=== PATIENT | female | born 1955 | race Caucasian/White ===

== ENCOUNTER 2016-10-24 20:39 | Inpatient (IN) | payer BC ==
[~2016-10-24] VITALS: Ht 157.5 cm; Wt 60.5 kg
--- NOTE | ~2016-10-24 | ECHO ---
Transthoracic Echocardiography Report (TTE) Demographics Patient Name MARCUS CHOW Date of Study 10/25/2016 Patient Number [id number] Visit Number [id number] Date of 1955 Room Number G6209 Gender Female Number Age 61 year(s) Referring Cain Leos Boot Liner Maker Sindhu Ochoa RVT, Physician RDCS Physician Interpreting Cheo Haley Electronic Heat Seal Operator Physician A Supervising Ordering Keyanna Tilley MD, MD/MLP Physician Nurse Stress Financial Analysis Consultant Conclusions Contractility Score Summary Normal Left Ventricular contractility was noted. Summary The estimated left ventricular ejection fraction is 65-70%. Mild concentric left ventricular hypertrophy. Diastolic assessment reveals Grade II pseudonormal diastolic function. . The left ventricle is normal in size . Trivial posterior pericardial effusion. Procedure Type of Study TTE procedure:2D Echocardiogram. Procedure Date Date: 10/25/2016 Start: 02:19 PM Study Location: Inpatient Portable Technical Quality: Adequate visualization Indications:Elevated Troponin. Appropriate Use Criteria: 8 Patient Status: Routine Rhythm: NSR HR: 78 bpm BP: 105/53 mmHg M-Mode/2D Measurements LV Diastolic Dimension: 4.1 cm LV Systolic Dimension: 2.09 cm LV Septum Diastolic: 1.21 cm LV PW Diastolic: 1.09 cm AO Root Dimension: 2 cm Cardiac Output: 3.89 l/min AV Cusp Separation: 1.8 cm RV Diastolic Dimension: 2.79 cm LA volume: 51 ml LVOT: 1.7 cm RV Base: 3.31 cm LVOT VTI: 22 cm RV Mid: 2.45 cm LV Stroke volume: 49.91 ml TAPSE: 2.64 cm TDI-S': 12.5 cm/s Doppler Measurements AV Peak Velocity: 1.27 m/s MV Peak E-Wave: 0.88 m/s AV Peak Gradient: 6.45 mmHg MV Peak A-Wave: 0.72 m/s AV Mean Gradient: 4 mmHg MV E/A Ratio: 1.21 LVOT Peak Velocity: 1.04 m/s MV P1/2t: 52 msec TR Gradient:19.89 mmHg PV Peak Velocity: 1.01 m/s Estimated RAP:5 mmHg PV Peak Gradient: 4.08 mmHg Estimated RVSP: 25 mmHg Estimated PASP: 24.89 mmHg E' Septal Velocity: 0.06 m/s A' Septal Velocity: 0.11 m/s E' Lateral Velocity: 0.08 m/s A' Lateral Velocity: 0.11 m/s Findings Left Ventricle Mild concentric left ventricular hypertrophy. Diastolic assessment reveals Grade II pseudonormal diastolic function. . The left ventricle is normal in size . Right Ventricle Normal right ventricle structure and function. Left Atrium The left atrium is mildly dilated. There is no evidence of patent foramen ovale or atrial septal defect by color Doppler. Right Atrium Normal right atrial size. IVC measures 2.71 cm with inspiratory collapse. Mitral Valve Normal mitral valve structure and function. Trivial mitral regurgitation by color Doppler. Aortic Valve Normal aortic valve structure and function. Tricuspid Valve Normal appearing tricuspid valve. Trivial tricuspid regurgitation by color Doppler. Pulmonic Valve Normal pulmonic valve structure and function. Trivial pulmonic valve regurgitation. Pericardial Effusion Trivial posterior pericardial effusion. Miscellaneous Visualized portions of the aortic root and ascending aorta appear normal in size. IVC is moderately dilated. Pleural Effusion No evidence of pleural effusion. Contractility Score LV regional wall motion:(0-Non visualized 1-Normal 2-Hypokinesis 3-Akinesis 4-Dyskinesis 5-Aneurysm) Signature dtt: Ilene Grider dtd: 10/25/16 [id number] Physician Self Edit
--- NOTE | ~2016-10-24 | HP ---
PATIENT'S NAME: MARCUS CHOW [facility] AGE: 61 Y [address] ROOM: [address] [address] LOCATION: [facility] ADMIT DATE: 10/25/2016 History & Physical DISCHARGE DATE: FAMILY PHYSICIAN: PHYSICIAN, UNKNOWN ATTENDING PHYSICIAN: RIRI ESTEVES DATE OF SERVICE: CHIEF COMPLAINT: Epigastric pain as well as a decreased oral intake and decreased urine output as well as nausea, vomiting, and generalized weakness. HISTORY OF PRESENT ILLNESS: This is a 61-year-old female, who says that for the last few days she has been having decreased oral appetite and also has noticed decrease in urine output as well as feeling nauseous and vomited a few times in last few days of bilious content. Also has been complaining of epigastric pain without radiation on palpation. Because of the epigastric pain, she has poor appetite and feeling nauseous. She also has generalized weakness from decreased oral appetite. Her last bowel movement was yesterday, it was normal. She denies constipation in the past. Because of all these problems, patient went to [facility] ER for evaluation. Over there, the patient was found to have YANI with a creatinine at 3.6, GFR of 13, and BUN of 46. Also AST at 45, ALT at 55, alkaline phosphatase at 146, and pyuria on urinalysis. Also has leukocytosis at 15.6. Because of these findings, patient was sent over here for further care. She does complain of some on and off exertional dyspnea after her multiple years of tobacco use. The patient denies any chest pain or cough or fever or chills or any other complaints. REVIEW OF SYSTEMS: As mentioned in history of present illness. All other systems were reviewed and they were negative except those mentioned in the history of present illness. PAST MEDICAL HISTORY: 1. Multiple sclerosis, currently not in flare. 2. Hypertension. 3. Depression. 4. Chronic pain syndrome, dependent on narcotics. 5. History of shingles, dependent on narcotics. 6. Active alcohol drinker. 7. Active cigarette user. 8. Last time she drank alcohol was a few days ago that she could not remember. PATIENT'S NAME: MARCUS CHOW [facility] AGE: 61 Y [address] ROOM: [address] [address] LOCATION: [facility] ADMIT DATE: 10/25/2016 History & Physical DISCHARGE DATE: FAMILY PHYSICIAN: PHYSICIAN, UNKNOWN ATTENDING PHYSICIAN: RIRI ESTEVES ALLERGIES: CODEINE, CAUSES ANAPHYLAXIS AND KEFLEX ALSO CAUSES ANAPHYLAXIS AND ATIVAN, WHICH SHE COULD NOT REMEMBER THE REACTION. SOCIAL HISTORY: The patient is an active cigarette smoker about 10 cigarettes per day since she was 13 years old. She is also alcohol drinker about 3 days per week, last time she drank was a few days ago that she could not remember, and when she drinks she drinks about 3 ounces of hard liquor. She denies any alcohol withdrawal seizure in the past. She has been drinking that about 25 years on and off about 3 days per week. She denies any illegal drug use. PAST SURGICAL HISTORY: 1. Right wrist surgery in the past. 2. Appendectomy. FAMILY HISTORY: Father from old age from a cause that she could not remember. Mother had leukemia and from the complication from leukemia. PHYSICAL EXAMINATION: VITAL SIGNS: Temperature 97.9, heart rate 78, respirations 16, blood pressure 85/52, saturation 92% on 1 L nasal cannula. GENERAL APPEARANCE: Alert and oriented x3, in no acute distress. HEENT: Pupils equally round and reactive to light. Extraocular muscles intact. Anicteric sclerae. Nasal turbinates are normal bilaterally. Dry oral mucosa. NECK: No JVD. CARDIOVASCULAR: Regular rate and rhythm. Normal S1, S2. No murmur. No rubs. No gallops. RESPIRATORY: Clear to auscultation. No rales. No rhonchi. No crackles. No wheezing. ABDOMEN: Soft, mildly tender to palpation in the epigastric area, but no rebound tenderness. and also no abdominal rigidity. Bowel sounds present. No mass. EXTREMITIES: No edema in upper or lower extremities. NEUROLOGICAL: Grossly nonfocal. SKIN: No ulcer, no rash, no cyanosis. LABORATORY DATA: All the labs in our facility are pending. For the last from the outside facility at our admission in the history of History of present illness. PATIENT'S NAME: MARCUS CHOW [facility] AGE: 61 Y [address] ROOM: [address] [address] LOCATION: [facility] ADMIT DATE: 10/25/2016 History & Physical DISCHARGE DATE: FAMILY PHYSICIAN: PHYSICIAN, UNKNOWN ATTENDING PHYSICIAN: RIRI ESTEVES IMAGING STUDIES: The patient had a CT abdomen and pelvis without contrast performed from the outside facility in [facility]. On admission, showed mild jejunitis and duodenitis and also showed a right lateral infrarenal abdominal aortic saccular aneurysm measuring 3.4 cm likely with right lateral intraluminal thrombus. A fatty infiltration of the liver. The patient also had a KUB performed at outside facility, which the report showed focal segmental colonic ileus in the distal transverse colon. Mild nonspecific bowel gas pattern. ASSESSMENT AND PLAN: 1. Regarding her acute kidney injury: Most likely from dehydration, from decreased oral intake, from prerenal from hypovolemia. We will give her IV fluids bolus for hydration and check blood pressure and then once the blood pressure is stable we will continue with maintenance. We will also put a Metcalf to monitor urine output and also strict in's and out's. We will check urine electrolytes. Further plan will depend on clinical course. She already had CT abd/pelv done from [facility] (See imaging study section above for report). 2. Regarding her severe sepsis from UTI (Sepsis time recorded at 1:30AM of 10/25/16): The patient has pyuria; however, she denies any dysuria or urinary frequency or urgency. However, she does have leukocytosis and also has hypotension, could be from pyuria and/or from acute kidney injury from dehydration. I am going to treat her with IV meropenem for coverage given the patient is hypotensive and also has pyuria, treating for urinary tract infection. Get urine culture. Further plan will depend on clinical course. Sepsis order set already completed and is in chart. 3. 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 Trend liver function testing again tomorrow. The patient does not require steroids at the moment. 4. Regarding her active tobacco use: A nicotine patch 21 g transdermal daily. 5. Regarding her right lateral infrarenal abdominal aortic aneurysm 3.4 cm likely with right lateral intraluminal thrombus on CT scan abdomen and pelvis without contrast on admission from [place]: We will consult Vascular Surgery in the morning. For the aneurysm, does not require surgery because it is less than 5.5 cm; however, I am consulting Vascular Surgery for the likely right lateral intraluminal thrombus. The patient denies any history of bleeding. I am going to cover with IV Protonix 40 mg b.i.d. due to her duodenitis and started her on the IV heparin drip for the right lateral intraluminal thrombus. I already explained to the patient about the benefits and risks of using IV heparin drip, which the most common complication would be bleeding and the patient agreed to proceed with IV heparin drip. I will keep her n.p.o. until seen by Vascular Surgery to determine if vascular intervention would be necessary. Otherwise, she could PATIENT'S NAME: MARCUS CHOW [facility] AGE: 61 Y [address] ROOM: [id number] [place], [place] [address] LOCATION: [facility] ADMIT DATE: 10/25/2016 History & Physical DISCHARGE DATE: FAMILY PHYSICIAN: PHYSICIAN, UNKNOWN ATTENDING PHYSICIAN: RIRI ESTEVES A eat diet if surgery was not necessary. Further plan will depend on clinical course. 6. Regarding her duodenitis and jejunitis: Start iv protonix 40mg bid in setting of useing iv heparin drip for the right renal intraluminal thrombus. Will check EKG and one set cardiac enzymes to rule out cardiac origin. 7. Regarding her ileus based on the KUB: She had a bowel movement just yesterday; however, due to the ileus pattern seen on the KUB, I am going to give her Colace standing and MiraLAX prn for constipation. 8. Regarding her hypertension: Home medications have to be reconciled before they can be addressed. I will hold all blood pressure medications in the phase of hydration and hypotension and yani. 9. Regarding her chronic pain syndrome dependent on narcotics: Home medications have to be reconciled before can be addressed. For now, I will hold the narcotics due to hypotension at the moment. I will give her IV fentanyl p.r.n. and IV morphine p.r.n. with holding parameters for pain control and prevention of narcotic withdrawal. Avoid NSAID/metformin/ACEI/ARBS at all costs. 10. Regarding her intermittent exertional dyspnea: Will check CXR and proBN to evaluate for copd lung findings and/or pleural effusion from alcohol induced cardiomyopathy. 11. She is a full code. 12. DVT prophylaxis: She will be on heparin drip. Time spent in care on the day of admission 70 minutes for 30 minutes was spent on chart review and interview. The remainder of the time was spent on physical examination and also on counseling including going over the plan of care and addressing all the questions and concerns that the patient had to her satisfaction and going over plan of care with nurse. Further plan will depend on clinical course. YURY TRUJILLO MD CC/janey /[id number] D: [id number] T: [id number] HISTORY & PHYSICAL
--- NOTE | ~2016-10-24 | DS ---
PATIENT'S NAME: MARCUS CUEVAS [facility] AGE: 61 Y [address] ROOM: [address] [address] LOCATION: [facility]U ADMIT DATE: 10/25/2016 Discharge Summary DISCHARGE DATE: 10/28/2016 FAMILY PHYSICIAN: Physician, Unknown ATTENDING PHYSICIAN: Sumeet Barlow PRINCIPAL DISCHARGE DIAGNOSES: 1. Acute renal failure with creatinine at the [facility] 3.6, creatinine now 0.5. 2. Severe sepsis. She qualified for this by her acute renal failure and hypotension and leukocytosis of 15 at the [facility]. SECONDARY DIAGNOSES: 1. Urinary tract infection with Escherichia coli susceptible to imipenem, Bactrim, nitrofurantoin with repeat urinalysis this morning being negative. 2. Elevated lipase, first checked on 07/27/2106 at 4:52 today at 496. 3. Three-day history of nausea and vomiting prior to admission. 4. Protein calorie malnutrition with pre-albumin of 13. 5. Hypophosphatemia at the lowest, it was 1.2 on 10/27/2016. It is currently 2.1. 6. Hypomagnesemia, mild. 7. Elevated proBNP at 3714 with grade 2 pseudonormal diastolic dysfunction. 8. Tobaccoism status post cessation counseling. 9. Abdominal aortic aneurysm with suspected thrombus. 10. Thrombocytopenia. 11. Macrocytosis with normal B12 level. 12. Renal failure. 13. Mild elevation of liver enzymes with AST at 45 and ALT of 55 at [facility]. 14. Hypertension, poorly controlled. CONSULTATIONS: Sb Diaz MD of Vascular Surgery. PROCEDURES: Echocardiogram. FINDINGS: Brief summary of findings showed 65-70% EF with normal left ventricular wall motion, left ventricular hypertrophy, mild and grade 2 pseudonormal diastolic dysfunction. BRIEF HISTORY: Ms. Cuevas is a 61-year-old female who reports epigastric pain with decreased oral intake, decreased urine output with nausea, vomiting, generalized weakness for 3 days prior to admission. She was seen at [facility] and noted to have elevated creatinine and was transferred here. Her initial white count was 15. She had an abnormal PATIENT'S NAME: MARCUS CUEVAS [facility] AGE: 61 Y [address] ROOM: [id number] [place], [place] [address] LOCATION: [facility]PCU ADMIT DATE: 10/25/2016 Discharge Summary DISCHARGE DATE: 10/28/2016 FAMILY PHYSICIAN: Physician, Unknown ATTENDING PHYSICIAN: Sumeet Barlow A urinalysis and found to have the infection as above. She has been treated with meropenem since early a.m. on 10/25/2016. She was initially treated in the ICU, but did well and was transferred to PCU 2 days ago. She is now tolerating a diet, ambulating, working well with physical therapy in the hallway and is ready for discharge. While her liver enzymes were slightly elevated at the time of presentation, they were repeated when she was admitted here. Her AST was 27 and ALT was 34. She does have slightly low protein at 5.6 and 2.5 from that specimen. Currently, her albumin is 3.1. She also developed hypophosphatemia despite oral intake, dropped down to 1.2. She was replaced with IV phosphate yesterday, came up to 1.9 and is down to 0.1. She will be given a dose of oral phosphate before she leaves and recommended to have lean protein with every meal and protein with every snacks. She was noted to have a low pre- albumin as well which is 13. She has macrocytosis with MCV of 104.2 yesterday. Her B12 is normal. She has been receiving folic acid and thiamine here which will be continued as an outpatient. Her MCV actually improved some this morning and is 99.5 today. However, she is thrombocytopenic at 121, this is stable from yesterday and on admission was 157. I have explained to the patient that she gets blood changes with alcohol intake. We have advised to decrease her alcohol intake to no more than 1 to 2 drinks per day. She has been drinking 3-4 drinks per session 2-3 times a week. She has also smoked most of her life. She is currently smoking half a pack a day, has been trying to cut down. She was seen by Dr. Diaz for the AAA, which was found on imaging and she was initially evaluated at [facility]. Aneurysm measures 3.4 cm and the report states with right lateral intraluminal thrombus "likely." I have discussed this with Dr. Diaz. He thinks that she does not need anticoagulation therapy at this time, but should take an aspirin daily of 81 mg. I have counseled her yesterday and today to stop cigarettes and we started her on NicoDerm patch of 14 mg. She has a diagnosis of multiple sclerosis and has chronic generalized aching muscular pain for which she has been on multiple narcotics. We have advised her to cut these down. She was on a fentanyl patches 75 mcg. We have weaned that down to 25 mcg. She gradually weaned off all of these. She does see a neurologist, Michael Valentino of [place] and she sees him in an office in [place]. She has a followup appointment already scheduled with him in the next couple of weeks. The patient has known hypertension which tends to be erotic. She had elevated PATIENT'S NAME: MARCUS CUEVAS [facility] AGE: 61 Y [address] ROOM: [id number] [place] [id number] LOCATION: [facility]PCU ADMIT DATE: 10/25/2016 Discharge Summary DISCHARGE DATE: 10/28/2016 FAMILY PHYSICIAN: Physician, Unknown ATTENDING PHYSICIAN: Sumeet Barlow hypertension, needed IV medications and amlodipine was added at 10 mg a day. I am going to recommend that she take a lower dose at home. We also increased her lisinopril while she was here. Her blood pressure is down this morning, but I recommend that she continue on her same home dose. This can be adjusted when she sees her PCP later this week. She is being given a script for CBC with diff, complete metabolic panel, phosphorus magnesium and 25-hydroxy vitamin D. Labs to be drawn prior to or at the visit with Dr. Stuart this week. INSTRUCTIONS AT DISCHARGE: Low fat, heart healthy diet with the lean protein at each meal and protein snack once to twice a day. She should force fluids, drink cranberry juice. ACTIVITY: Walk 30 minutes every day. FOLLOWUP: 1. Dr. Diaz of Vascular Surgery here in 6 months with imaging. 2. I have recommended she see Dr. Andrés Stuart within a week of discharge. His phone number is [phone] at the [facility]. 3. Dr. Michael Valentino. MEDICATION LIST: 1. Amlodipine 5 mg p.o. daily. 2. Aspirin 81 mg p.o. daily with food. 3. Vitamin D 400 units p.o. daily. 4. Karina[place] p.r.n. 5. Duragesic patch 25 mcg transdermal every 72 hours. 6. Folic acid 1 mg p.o. daily. 7. Gabapentin 600 mg p.o. q.i.d. 8. Lisinopril 10 mg at bedtime. 9. Magnesium oxide 400 mg p.o. b.i.d. 10. Multiple vitamin 1 p.o. daily. 11. NicoDerm patch 14 mg transdermal change daily and wean down to 7 mg a day after a week or when able to. 12. She was on oxycodone 5/325 one daily as needed and written that she may take up to 3 a day. She is advised to wean this. She is advised to stop the oxycodone 15 mg daily. 13. OxyContin 30 twice a day should be weaned as tolerated as well. 14. Thiamine 100 mg p.o. daily. 15. Effexor 75 mg p.o. daily. 16. Vitamin C 500 mg p.o. daily. 17. Plegridy Pen 125 mcg subcu every 14 days. She is to continue this. 18. I will supply her with a script for one box of the fentanyl patch, otherwise she will have to get that from her pain management doctor since it is decreased dose and she will be able to use the other patches. PATIENT'S NAME: MARCUS CUEVAS [facility] AGE: 61 Y [address] ROOM: [place] [address] [facility] ADMIT DATE: 10/25/2016 Discharge Summary DISCHARGE DATE: 10/28/2016 FAMILY PHYSICIAN: Physician, Unknown ATTENDING PHYSICIAN: Sumeet Barlow A Greater than 60 minutes has actually been spent on counseling the patient, reviewing the data and making recommendations for followup. TOMASZ BIRMINGHAM MD LM/janey /[id number] CC: SbMD Andrés Moctezuma MD Terry M Himes, MD d: 10/29/16 0048 t: 10/29/16 1246, DISCHARGE SUMMARY
[2016-10-25 02:13] LABS: BASOPHIL % 0.2 %; HEMATOCRIT 50.2 % (33.0-46.0); HEMOGLOBIN 17.5 g/dL (10.0-15.0); IMMATURE GRANULOCYTE % 0.3 %; LYMPHOCYTE % 21.7 %; MCH 35.3 pg (27.0-34.0); MCHC 34.9 gm/dL (32.0-36.5); MCV 101.2 fl (83.0-98.0); MONOCYTE # 0.8 K/uL (0.0-1.0); MONOCYTE % 8.9 %; MPV 11.3 fl (9.4-12.4); NEUTROPHIL # (ANC) 6.5 K/uL (1.8-7.8); NEUTROPHIL % 68.9 %; NRBC % 0 /100WBC (0-0.00); PLATELET COUNT 157 K/uL (150-450); RBC 4.96 M/uL (3.50-5.50); RDW-CV 14.9 % (11.9-14.6); WBC 9.4 K/uL (4.0-11.0)
[2016-10-25 02:22] LABS: INR - (THERAPEUTIC) 1.05 (0.92-1.07); PTT 27 SECONDS (25-32)
[2016-10-25 02:46] LABS: ALBUMIN 2.9 gm/dL (3.5-5.0); ALK PHOS 129 IU/L (33-138); ALT 42 IU/L (12-78); ANION GAP 16.7 (10.0-19.0); AST 32 IU/L (10-40); BLOOD UREA NITROGEN 54 mg/dL (6-24); CALCIUM 8.1 mg/dL (8.5-10.5); CHLORIDE 101 mMol/L (96-110); CO2 23 mMol/L (22-32); CREATININE 3.1 mg/dL (0.5-1.1); SODIUM 137 mMol/L (135-145); TOTAL BILIRUBIN 0.6 mg/dL (0.0-1.5); TOTAL PROTEIN 6.8 g/dL (6.0-8.4)
[2016-10-25 02:47] LABS: POTASSIUM 3.7 mMol/L (3.7-5.1)
[2016-10-25 03:10] LABS: BLOOD URINE 10 /UL (NEGATIVE); COLOR URINE YELLOW (YELLOW); GLUCOSE URINE NEGATIVE (NEGATIVE); KETONE URINE 5 mg/dL (NEGATIVE); LEUKOCYTES URINE 100 /UL (NEGATIVE); NITRITE URINE NEGATIVE (NEGATIVE); PROTEIN URINE 30 mg/dL (NEGATIVE); SPEC GRAVITY URINE 1.025 (1.003-1.035); TURBIDITY URINE 1+ (CLEAR); UROBILINOGEN URINE NORMAL (NORMAL)
[2016-10-25 03:33] LABS: RBC URINE RARE #/HPF (NEGATIVE)
[2016-10-25 03:34] LABS: BACTERIA URINE MODERATE (NEGATIVE); EPITHELIAL URINE 0-2 #/HPF (NEGATIVE)
--- NOTE | 2016-10-25 05:02 | NUR ---
Significant Event: AOx3. SR, hypotensive, but MAP >65, currently bolusing with NS [id number]. 1L/NC. Bowel sounds rare/hypoactive, abdomen slightly firm. Nausea x1, no emesis. Metcalf inserted this shift, adequate UOP since, concentrated. Follow up: Obtain pneumonia immunization date from [facility]. Consult with Dr. Diaz today.
[2016-10-25 05:30] LABS: COCAINE NEGATIVE (NEGATIVE); OPIATES POSITIVE (NEGATIVE)
[2016-10-25 05:34] LABS: AMPHETAMINE NEGATIVE (NEGATIVE); BARBITURATE NEGATIVE (NEGATIVE)
[2016-10-25 05:48] LABS: HEMATOCRIT 44.7 % (33.0-46.0); HEMOGLOBIN 15.4 g/dL (10.0-15.0); MCH 35.7 pg (27.0-34.0); MCHC 34.5 gm/dL (32.0-36.5); MCV 103.7 fl (83.0-98.0); MPV 10.8 fl (9.4-12.4); RBC 4.31 M/uL (3.50-5.50); RDW-CV 14.7 % (11.9-14.6); WBC 7.7 K/uL (4.0-11.0)
[2016-10-25 06:10] LABS: ALBUMIN 2.5 gm/dL (3.5-5.0); ANION GAP 15.5 (10.0-19.0); CREATININE 2.6 mg/dL (0.5-1.1); POTASSIUM 3.5 mMol/L (3.7-5.1); TOTAL BILIRUBIN 0.6 mg/dL (0.0-1.5); TOTAL PROTEIN 5.6 g/dL (6.0-8.4)
[2016-10-25 06:12] LABS: CALCIUM 7.3 mg/dL (8.5-10.5)
[2016-10-25] MEDS ORDERED: NEURONTIN600 MG PO (09:55)
[2016-10-25] MEDS ORDERED: DURAGESIC 25MC25 MCG (09:55)
[2016-10-25] MEDS ORDERED: PERCOCET 5-3251 EACH PO (09:56)
[2016-10-25] MEDS ORDERED: OXYCONTIN15 MG PO (09:57)
[2016-10-25] MEDS ORDERED: OXYCONTIN30 MG PO (09:57)
[2016-10-25] MEDS ORDERED: EFFEXOR75 MG PO (09:57)
[2016-10-25] MEDS ORDERED: PRINIVIL OR ZES10 MG PO (09:58)
[2016-10-25] MEDS ORDERED: VITAMIN D-40400 UNIT PO (09:58)
[2016-10-25] MEDS ORDERED: VITAMIN E400 UNI2 PO (09:58)
[2016-10-25] MEDS ORDERED: ASCORBIC ACID500 MG PO (09:58)
[2016-10-25] MEDS ORDERED: ALKA-SELTZER P1 EACH PO (09:59)
[2016-10-25] MEDS ORDERED: PLEGRIDY P125 MCG/0. SUB-Q (10:00)
[2016-10-25] MEDS ORDERED: PREVIDENT100 ML TOP (10:02)
--- NOTE | 2016-10-25 11:24 | NUR ---
A - PT SCREENED D/T MST. 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 RARE BS, ABD DISTENDED NOW. SURGERY TO SEE AFTERNOON TODAY TO DECIDE IF GOING FOR SURGERY OR NOT. PT STATED POSITIVE FOR WT LOSS BUT CANNOT TELL THE EXACT AMOUNT. POOR APPETITE X4 DAYS. DEFERRED NFPE, PT NOT FEELING WELL, IN PAIN DURING CONVERSATION. HT: 157.48 CM, WT: 136#, BMI: 24.9, IBW: 50 KG, %IBW: 124% LABS: K+ 3.5, BUN 50, CREA 2.6, ALB 2.5, PO4 5.2, PRE-ALB 13 MEDS: THIAMINE, FOLIC ACID, ZOFRAN DIET: NPO. ICE CHIPS. NAUSEOUS. PT REPORTED APPETITE WAS GOOD UNTIL THIS HAPPENED. EST NEEDS: 2564-6029 KCAL (25-30 KCAL/KG IBW), 50-60 GRAMS PROTEIN (1-1.2 GRAMS/KG IBW), FLUID NEEDS: 1ML/KCAL D - INADEQUATE ORAL INTAKE RELATED TO ALTERED GI FUNCTION EVIDENCED BY N/V PRIOR TO ADMISSION AND UNK AMOUNT OF WT LOSS PER PT. I - PT AGREED TO TRY ENSURE ENLIVE BID ONCE ABLE TO START ORAL DIET. M/E - GOAL: ADVANCE DIET TOLERATED AND ABLE TO TOLERATE >50% OF MEALS AND AT LEAST ONE ORAL SUPPLEMENT PER DAY IN 4-5 DAYS.
--- NOTE | 2016-10-25 14:00 | NUR ---
Introduced self and role of care management to patient and her . They live in [place]. Patient does not use a walker, cane or O2 at home. She says she is usually independent and active. She hopes to go home when ready for discharge. can assist her if needed. Will follow.
--- NOTE | 2016-10-25 15:59 | NUR ---
Significant Event: AAOx3, denies N/T. L) pupil 5mm brisk, R) pupil 3mm brisk. C/O occasional occipital HERNANDEZ; tolerable without medication. SBP 99-110's, HR 70-80's SR, 1+ pedal pulse, absent edema. L.S. clear and diminished throughout, expiratory wheeze present. B.S. hypoactive, tenderness to RUQ, abdomen slightly firm. Metcalf intact draining leana urine. PIV R) forearm infusing Heparin and N.S. carrier at 125mL/hr. R) AC infusing KCl 40mEQ. Ambulates SBA. Clear liquid diet, advance as tolerates. Follow up: PTT-HP 1600, awaiting results. Plan for f/u scan in 6mos with Joe.
[2016-10-25 16:29] LABS: ALBUMIN 2.9 gm/dL (3.5-5.0); CALCIUM 7.7 mg/dL (8.5-10.5); CREATININE 1.4 mg/dL (0.5-1.1); MAGNESIUM 1.8 mg/dL (1.8-2.6)
[2016-10-26 04:11] LABS: BASOPHIL % 0.2 %; EOSINOPHIL % 0.4 %; HEMATOCRIT 40.1 % (33.0-46.0); HEMOGLOBIN 13.7 g/dL (10.0-15.0); IMMATURE GRANULOCYTE % 0.2 %; LYMPHOCYTE # 1.5 K/uL (0.8-4.0); LYMPHOCYTE % 31.4 %; MCH 35.6 pg (27.0-34.0); MCHC 34.2 gm/dL (32.0-36.5); MCV 104.2 fl (83.0-98.0); MONOCYTE # 0.4 K/uL (0.0-1.0); MONOCYTE % 8.8 %; MPV 11.2 fl (9.4-12.4); NEUTROPHIL # (ANC) 2.9 K/uL (1.8-7.8); NRBC % 0 /100WBC (0-0.00); PLATELET COUNT 121 K/uL (150-450); RBC 3.85 M/uL (3.50-5.50); RDW-CV 14.9 % (11.9-14.6); WBC 4.9 K/uL (4.0-11.0)
[2016-10-26 04:25] LABS: ALBUMIN 2.8 gm/dL (3.5-5.0); ANION GAP 10.5 (10.0-19.0); CALCIUM 8.1 mg/dL (8.5-10.5); CREATININE 0.9 mg/dL (0.5-1.1); MAGNESIUM 1.8 mg/dL (1.8-2.6); POTASSIUM 3.5 mMol/L (3.7-5.1); TOTAL PROTEIN 5.9 g/dL (6.0-8.4)
[2016-10-26 04:26] LABS: PHOSPHORUS 1.5 mg/dL (2.5-4.9); TOTAL BILIRUBIN 0.8 mg/dL (0.0-1.5)
--- NOTE | 2016-10-26 07:29 | NUR ---
Significant Event: Patient A/O x3. Denies N/T. Occasionaly headache. SR, with HR 70s-90s. Afibrile. Bowel sounds active, diet clear liquid and to advance as tolerated. NO BM. Patient liu intact, clear yellow output. Patient 02 weaned off to RA, Sats >95%. Patient increasingly more pain throughout shift. Morphine given x2. Follow up: Continue.
--- NOTE | 2016-10-26 17:46 | NUR ---
Patient A/O x 3. Vital signs BP 188/91, HR 78, RR 22, O2 saturation 99% on room air, temperature 98.3, and rates pain 6/10 generalized and states it is tolerable. Received a Percocet at 1630. Neurologically intact. Lung sounds clear. Denies shortness of breath. Bowel sounds active. Denies difficulty urinating, but states she hasn't been going as frequently as she was at home. Will continue to monitor. Right wrist PIV SL. Denies feeling shakey or anxious at this time. Received from ICU at 1720 and report received from Jean Lowe RN. Will continue to monitor and continue as per plan of care. Km GO 10/26/16 1720
--- NOTE | 2016-10-27 04:13 | NUR ---
A&Ox3. COOPERATIVE WITH CARES. AMBULATES WITH STAND BY ASSIST. NO C/O OF DIZZINESS. AFEBRILE. BPS RANGE FROM 140/180S. MD NOTIFIED. ONE TIME DOSE OF LISINOPRIL GIVEN AND ONE TIME NORVASC GIVEN. ORDER TO MONITOR BPS Q30 MINS UNTIL 0500 AND THEN HOURLY UNTIL 0800. VOIDS WITHOUT DIFFICULTY. C/O OF PAIN IN ABDOMINAL REGION. SCHEDULED PAIN MEDICATIONS RECEIVED. RESTS QUIETLY THROUGHOUT MOST OF NOC.
[2016-10-27 05:25] LABS: ALBUMIN 3.3 gm/dL (3.5-5.0); ANION GAP 10.7 (10.0-19.0); CALCIUM 8.7 mg/dL (8.5-10.5); CHLORIDE 103 mMol/L (96-110); CO2 27 mMol/L (22-32); CREATININE 0.6 mg/dL (0.5-1.1); MAGNESIUM 1.8 mg/dL (1.8-2.6); POTASSIUM 3.7 mMol/L (3.7-5.1); SODIUM 137 mMol/L (135-145)
[2016-10-27 05:36] LABS: BLOOD UREA NITROGEN 10 mg/dL (6-24); PHOSPHORUS 1.2 mg/dL (2.5-4.9)
--- NOTE | 2016-10-27 17:18 | NUR ---
Significant Event: A/OX3, VSS ON ROOM AIR. PT. UP AD PIOTR IN ROOM, WALKED IN HALLS TODAY WITH PT AND FAMILY, HERE. VOIDING FINE, NO BM TODAY. POTASSIUM PHOSPHATE RUNNING @ 43mL/HR, NEED PHOSPHATE LEVEL 2HRS POST IV INFUSION. CONTINUES ON ABX. IV TO R)AC. POSSIBLE D/C TO HOME IN AM. Follow up: CONTINUE WITH POC.
[2016-10-28 03:21] LABS: HEMATOCRIT 44.2 % (33.0-46.0); HEMOGLOBIN 15.7 g/dL (10.0-15.0); MCH 35.4 pg (27.0-34.0); MCHC 35.5 gm/dL (32.0-36.5); MCV 99.5 fl (83.0-98.0); MPV 11.4 fl (9.4-12.4); RBC 4.44 M/uL (3.50-5.50); RDW-CV 13.9 % (11.9-14.6); WBC 3.9 K/uL (4.0-11.0)
[2016-10-28 03:34] LABS: ALBUMIN 3.1 gm/dL (3.5-5.0); ANION GAP 11.5 (10.0-19.0); BLOOD UREA NITROGEN 11 mg/dL (6-24); CALCIUM 8.7 mg/dL (8.5-10.5); CHLORIDE 101 mMol/L (96-110); CO2 26 mMol/L (22-32); CREATININE 0.5 mg/dL (0.5-1.1); MAGNESIUM 1.7 mg/dL (1.8-2.6); PHOSPHORUS 2.1 mg/dL (2.5-4.9); POTASSIUM 3.5 mMol/L (3.7-5.1); SODIUM 135 mMol/L (135-145)
--- NOTE | 2016-10-28 04:04 | NUR ---
Significant Event: A&Ox3 this shift. Up ambulating in hallways and in room. Systolic BPs 150-160s. On r/a. CIWA score remains 0. Bowel sounds active. New IV started on post forearm SL. Phosphate level 1.9. Con't on antibiotics. Has constant pain but states its tolerable. Follow up:Possible D/C in AM. To con't with POC.
[2016-10-28 08:40] LABS: BILIRUBIN URINE NEGATIVE (NEGATIVE); BLOOD URINE NEGATIVE /UL (NEGATIVE); COLOR URINE YELLOW (YELLOW); GLUCOSE URINE 50 mg/dL (NEGATIVE); KETONE URINE NEGATIVE (NEGATIVE); LEUKOCYTES URINE NEGATIVE /UL (NEGATIVE); NITRITE URINE NEGATIVE (NEGATIVE); PROTEIN URINE NEGATIVE (NEGATIVE); SPEC GRAVITY URINE 1.005 (1.003-1.035); TURBIDITY URINE CLEAR (CLEAR); UROBILINOGEN URINE NORMAL (NORMAL)
[2016-10-28] MEDS ORDERED: NORVASC5 MG PO (10:32)
[2016-10-28] MEDS ORDERED: ASPIRIN (CHILDR81 MG PO (10:34)
[2016-10-28] MEDS ORDERED: FOLIC ACID1 MG PO (10:37)
[2016-10-28] MEDS ORDERED: DAILY MULTIPLE1 EAC1 PO (10:40)
[2016-10-28] MEDS ORDERED: MAGOX 400400 MG PO (10:40)
[2016-10-28] MEDS ORDERED: NICODERM CQ1 EAC1 TRANS (10:44)
[2016-10-28] MEDS ORDERED: VITAMIN B-1100 MG PO (10:56)
--- NOTE | 2016-10-28 12:54 | NUR ---
PATIENT A/OX3, VSS ON ROOM AIR. CIWA SCORE HAS REMAINED A 0. NO COMPLAINTS OF SEVERE PAIN, JUST ACHY PAIN, DOES GET SCHEDULED OXYCONTIN BID, & HAS A 25mcg FENTANYL PATCH TO RIGHT HIP. PT. UP AD PIOTR IN ROOM. NEW MEDICATIONS, DISMISSAL INSTRUCTIONS GONE OVER WITH PATIENT AND , NO FURTHER QUESTIONS AT THIS TIME. PT. AWARE OF MAKING OWN F/U APPOINTMENTS AND INSTRUCTED ON DIET AND TO QUIT SMOKING AND DRINKING WHEN GOING HOME. IV REMOVED FROM RIGHT FOREARM WITHOUT DIFFICULTLY. ALL BELONGINGS SENT HOME WITH PATIENT AND .
== END 2016-10-28 11:40 | disposition disaster alternative care site (69) | DRG 872 ==
LOC: GICU 10-25 00:54 → GPCU 10-26 17:26
PROVIDERS: Internal Medicine; ADMIT Internal Medicine
DX: A41.9 Sepsis, unspecified organism (principal); I95.9 Hypotension, unspecified; I82.90 Acute embolism and thrombosis of unspecified vein; K56.7 Ileus, unspecified; N39.0 Urinary tract infection, site not specified; R65.20 Severe sepsis without septic shock; B96.20 Unspecified Escherichia coli [E. coli] as the cause of diseases classified elsewhere; D72.829 Elevated white blood cell count, unspecified; E86.1 Hypovolemia; F17.200 Nicotine dependence, unspecified, uncomplicated; F32.9 Major depressive disorder, single episode, unspecified; G89.4 Chronic pain syndrome; I10 Essential (primary) hypertension; I71.4 Abdominal aortic aneurysm, without rupture; K29.80 Duodenitis without bleeding; R74.0 Nonspecific elevation of levels of transaminase and lactic acid dehydrogenase [LDH]
CPT/HCPCS: C9113; G0480; J0360; J1644; J2185; J2270; J2405; J3010; J3480; J7030; J7040; J7050; J7060; P9047